=== PATIENT | male | born 1970 | race African-American/Black ===

== ENCOUNTER 2021-11-06 19:22 | Emergency (ER) | payer OTHER ==
[~2021-11-06] VITALS: Ht 195.6 cm; Wt 99.1 kg
[2021-11-06] MEDS ORDERED: LIDOCAINE 1% 10 ML VIAL INJ ONE (20:45)
[2021-11-06] MEDS ORDERED: BACITRACIN 28 GM OINTMENT TP ONE (20:45)
[2021-11-06 23:39] VITALS: BP 124/76
== END 2021-11-06 23:41 | disposition home or self-care (01) ==
LOC: EMS 19:23
DX: S01.112A Laceration without foreign body of left eyelid and periocular area, initial encounter (principal); S60.811A Abrasion of right wrist, initial encounter; Y08.89XA Assault by other specified means, initial encounter; Y93.89 Activity, other specified; Y92.89 Other specified places as the place of occurrence of the external cause; Y99.8 Other external cause status
CPT/HCPCS: 99284; 70450; 12013; J3490